=== PATIENT | male | born 2000 | race Caucasian/White ===

== ENCOUNTER 2020-06-16 06:55 | Outpatient (REF) | payer OTHER, SELFPAY | END 2020-06-16 06:56 | disposition home or self-care (01) | LOC: HO.LAB 06:55 | PROVIDERS: PCP Internal Medicine; Visit Provider Internal Medicine | DX: Z20.828 Contact with and (suspected) exposure to other viral communicable diseases (principal) | CPT/HCPCS: C9803; U0003 ==

== ENCOUNTER 2020-10-05 07:32 | Outpatient (REF) | payer OTHER, SELFPAY ==
[2020-10-05 12:29] LABS: SARS COV2 PCR INHOUSE NEGATIVE (Negative)
== END 2020-10-05 07:33 | disposition home or self-care (01) ==
LOC: HO.LAB 07:32
PROVIDERS: Visit Provider Internal Medicine
DX: Z20.822 Contact with and (suspected) exposure to COVID-19 (principal)
CPT/HCPCS: C9803; U0003

== ENCOUNTER → 2021-01-30 12:39 | Outpatient (BNVA) | payer OTHER, SELFPAY | PROVIDERS: PCP Internal Medicine; Visit Provider Physician Assistant ==

== ENCOUNTER 2021-07-06 10:05 | Outpatient (REF) | payer OTHER, SELFPAY | END 2021-07-06 10:06 | disposition home or self-care (01) | LOC: HO.LAB 10:05 | PROVIDERS: Visit Provider Internal Medicine | DX: Z13.89 Encounter for screening for other disorder (principal) ==

== ENCOUNTER 2024-12-22 10:26 | Emergency (ER) | payer BC, OTHER, SELFPAY ==
--- NOTE | ~2024-12-22 | XR_ITS ---
EXAMINATION: XR CHEST CLINICAL INFORMATION: chest pain COMPARISON: None available. TECHNIQUE: 2 views of the chest were obtained. FINDINGS: No significant abnormality is noted involving the heart, lungs, mediastinum, bony thorax or soft tissues. XR/XR chest 2V IMPRESSION: No acute disease Electronically signed by: Matt Russell MD 12/22/2024 12:56 PM EDT
--- NOTE | ~2024-12-22 | CT_ITS ---
EXAMINATION: CT ANGIOGRAM CHEST/THORACIC AORTA CLINICAL INFORMATION: Enlarged ascending thoracic aorta. COMPARISON: None available. TECHNIQUE: Multiple axial images were obtained through the chest after the administration of 70 mL of Omnipaque 350 intravenous contrast. Extensive vascular post-processing including two-dimensional and three-dimensional reformatted images were created and reviewed on an independent workstation. This CT examination was performed using dose optimization techniques as appropriate, variously including the following: *Automated exposure control *Adjustment of mA and/or kV according to patient size (this includes techniques or standardized protocols for targeted exams where dose is matched to indication/reason for exam; i.e. extremities or head) *Use of iterative reconstruction technique DLP: 399 mGy centimeter. FINDINGS: Thoracic aorta is patent. No intraluminal filling defect. No focal stenosis. Ascending thoracic aorta diameter is 20 mm. Thoracic aortic arch diameter is 19 mm. Descending thoracic aorta diameter is 17 mm. No IV contrast extravasation. The main right branches are patent without focal stenosis or intimal flap. The V1/V2 segments are patent without focal stenosis or intimal flap. Ancillary findings: No pneumomediastinum. No hemomediastinum. No hemopericardium. No pericardial effusion. No lymphadenopathy, mediastinum/perihilar. No acute airspace disease. No gross pulmonary nodules. No bronchiectasis. No honeycombing. Respiratory airways is patent. No pleural effusion. No hemothorax. Nonobstructing 2.5 mm calculus, right kidney. No acute fracture or listhesis, axial skeleton. Sternum is intact. Included clavicles and scapula are intact. No acute rib fracture. CT/CT angio chest aorta IMPRESSION: No aortic dissection or aneurysm. Fleischner guidelines were followed. Electronically signed by: Abdoul High MD 12/22/2024 02:43 PM EDT
--- NOTE | 2024-12-22 10:27 | ECG_ITS ---
Test Reason : CP Blood Pressure : */* mmHG Vent. Rate : 68 BPM Atrial Rate : 68 BPM P-R Int : 130 ms QRS Dur : 82 ms QT Int : 364 ms P-R-T Axes : 23 59 48 degrees QTcB Int : 387 ms Normal sinus rhythm Normal ECG No previous ECGs available Referred By: Generic ED Physician Electronically Signed By: Uriah Blount
--- NOTE | 2024-12-22 10:32 | ED_ITS ---
HPI - General Adult General Chief complaint: Chest Pain Stated complaint: Chest pain, Abd pain Time Seen by Provider: 12/22/24 10:31 Source: patient Mode of arrival: ambulatory Limitations: no limitations History of Present Illness ED Provider: Lisa Hemphill PA-C HPI narrative: Patient is a 24 year old assigned male at with no reported medical history presenting to the emergency department today with chest pain / palpitations / and near syncope. Patient states that over the last year he has had episodes of near syncope when exercising and has been having left sided chest pain with palpitations. Patient states that over the last few weeks his symptoms have been getting worse. Patient denies any dizziness, lightheadedness, abdominal pain, nausea, vomiting, fever, chills, blurry vision, double vision, loss of vision, difficulty breathing, shortness of breath, back pain, night sweats, pain with urination, increased urinary frequency, increased urinary urgency, blood in his urine or stool, syncope, recent trauma or falls, bowel incontinence, bladder incontinence, or any other complaints at this time. Onset (ago): year(s) (1) Location: chest Relieving factors: none Exacerbating factors: other (exercise) Associated symptoms: chest pain Treatments prior to arrival: none Related Data Allergies Allergy/AdvReac Type Severity Reaction Status Date / Time azithromycin [AZITHROMYCIN] Allergy Unknown RASH Verified 12/22/24 10:36 Review of Systems 2 Constitutional: Constitutional: Reports no additional constitutional complaints, Denies chills, Denies fever(s) and Denies night sweats Eyes: Eyes: Reports no additional eye complaints, Denies blurry vision, Denies change in vision, Denies diplopia, Denies eye discharge, Denies loss of vision and Denies eye pain ENT: Denies dizziness Cardiovascular: Cardiovascular: Reports no additional cardiovascular complaints, Reports chest pain, Denies lightheadedness, Denies Loss of Consciousness, Reports palpitations and Denies dyspnea Respiratory: Respiratory: Reports no additional respiratory complaints and Denies dyspnea Gastrointestinal: Gastrointestinal: Reports no additional gastrointestinal complaints, Denies abdominal pain, Denies melena, Denies hematochezia, Denies change in bowel habits and Denies change in stool character Genitourinary: Genitourinary: Reports no additional male genitourinary complaints, Denies hematuria, Denies oliguria, Denies difficulty urinating, Denies dysuria, Denies urinary frequency, Denies urinary hesitancy, Denies urinary incontinence and Denies urinary urgency Musculoskeletal: Musculoskeletal: Reports no additional musculoskeletal complaints, Denies numbness and Denies tingling Neurologic: Denies dizziness, Denies loss of vision, Denies numbness and Denies tingling Comments: near syncope Psychiatric: Psychiatric: Reports no additional psychiatric complaints Endocrine: Endocrine: Reports no additional endocrine complaints and Reports palpitations Hematologic/Lymphatic: Hematologic/Lymphatic: Reports no additional hematologic/lymphatic complaints Allergic/Immunologic: Allergic/Immunologic: Reports no additional allergic/immunologic complaints [facility] Past Medical History Attestation statement: The following information was validated with the patient. 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 Physical Exam ED Vital Signs: Vital Signs - 24 hr 12/22/24 10:45 12/22/24 12:00 12/22/24 14:00 Temperature 98.2 F 98.8 F Pulse Rate 65 71 66 Respiratory Rate 10 L 16 12 Blood Pressure 136/86 122/69 123/64 Pulse Oximetry 99 98 100 Oxygen Delivery Method Room Air Room Air Room Air BMI result Body Mass Index 27.2 Const General: cooperative, no acute distress, alert and awake Nutritional Appearance: well nourished Orientation/consciousness: patient oriented x3 HENMT Head: Yes normal to inspection and Yes atraumatic Ears: hearing grossly normal bilaterally and external ears normal General nose exam: Normal external nose present, no nasal discharge noted and no epistaxis Face and sinus: Yes normal facial exam, No abrasion and No laceration Mouth: Normal oral and palatal mucosa present, no drooling and no muffled voice Eyes General: appearance normal, both eyes and all related structures Periorbital: periorbital findings normal Eyelids: Yes eyelids normal Conjunctivae: conjunctivae normal Pupils: Equal, round and reactive pupils present EOM: EOMs intact bilaterally Neck Neck: Yes normal visual inspection, Yes full ROM and Yes no lymphadenopathy Resp Effort & Inspection: normal respiratory effort and able to speak in complete sentences Neuro General: patient oriented x3, moves all extremities and CN's II-XI intact bilaterally Cranial nerves: Yes Equal, round and reactive pupils present Cognition (Neuro): normal cognition Extrem General: Yes normal to inspection, Yes full ROM and Yes capillary refill normal Psych Appearance: grossly normal Mental Status: mental status grossly normal Affect: normal affect Attitude: cooperative Thought process: Normal thought process present Thought content: Normal thought content present Insight: Good insight present (Psych) Medications Administered Discontinued Medications Generic Name Dose Route Start Last Admin Trade Name Ramo PRN Reason Stop Dose Admin Iohexol 100 ml 12/22/24 14:31 12/22/24 14:31 Iohexol 350 Mg/Ml 100 Ml Infus..Btl IV 12/22/24 14:32 60 ml ONCE ONE Administration Medical Decision Making Medical Decision Making [facility] Narrative: Patient is a 24 year old assigned male at with no reported medical history presenting to the emergency department today with chest pain / palpitations / and near syncope. Patient's physical exam was unremarkable. Patient's blood work was unremarkable. Patient's EKG was unremarkable. Patient's chest x-ray showed no acute process. I spoke with Dr. Blount who recommended obtaining an echo. Echo was obtained and as he was reviewing it, Dr. Blount recommended a CTA of the aorta. CTA of the aorta obtained which was negative for any acute process. Dr. Blount recommended outpatient follow up with his office. I explained my physical exam findings as well as all test results to the patient. I answered all questions asked by the patient. I stressed the importance of the patient taking his medication as directed (either prescribed or as the over the counter packaging recommends). I stressed the importance of the patient following up with his primary care provider and assistant offset press operator. I stressed the importance of the patient returning to the emergency department immediately if his symptoms were to worsen or if he were to develop any dizziness, shortness of breath, difficulty breathing, chest pain, blurry vision, loss of vision, nausea, vomiting, abdominal pain, fever, chills, back pain, or any other complaints. Patient verbalized agreement and understanding with this treatment plan and discharge. Differential Diagnosis Differential Diagnoses: The differential diagnosis associated with the presentation includes Hypertrophic cardiomyopathy Chest pain Atypical chest pain Palpitations Anxiety Admission/Observation Consideration of admission/observation: Escalation of care including admission/observation considered Patient would have been admitted to the hospital had his work up had any findings where hospital admission was appropriate and his clinical presentation warranted hospital admission. Consult Healthcare Provider Management of the patient was discussed with: Ball[place] (Spoke with Dr. Blount the assistant offset press operator as noted in the MDM Rationale portion of this note. ) Lab Data [facility] Lab Attestation statement: I reviewed the patient's lab results. My interpretation of these results are in the MDM Rationale portion of this note. 12/22/24 10:35 12/22/24 11:03 Labs: Lab Results 12/22/24 12/22/24 12/22/24 Range/Units 10:35 11:03 11:19 WBC 4.5 L (4.8-10.8) X10*3/uL RBC 5.53 (4.60-5.80) X10*6/uL Hgb 16.1 (14.0-18.0) g/dl Hct 48.3 (42.0-52.0) % MCV 87.3 (80.0-98.0) fL MCH 29.1 (27.0-33.0) pg MCHC 33.3 (31.0-36.0) g/dl RDW 12.7 (11.0-16.0) % Plt Count 157 L (160-400) X10*3/uL MPV 11.1 (9.4-12.4) fL Immature Gran % (Auto) 0.4 (0.0-0.4) % Neut % (Auto) 42.5 L (45-73) % Lymph % (Auto) 44.8 H (20-40) % [place] % (Auto) 8.7 (2-11) % Eos % (Auto) 2.9 (0-4) % Baso % (Auto) 0.7 (0-2) % Lymph # (Auto) 2.0 (1.2-4.9) X10*3/uL [place] # (Auto) 0.4 (0.1-1.2) X10*3/uL Eos # (Auto) 0.1 (0.0-0.4) X10*3/uL Baso # (Auto) 0.0 (0.0-0.2) X10*3/uL Abs Immat Gran (auto) 0.02 (0.00-0.03) X10*3/uL Absolute Neuts (auto) 1.9 L (2.0-8.3) x10*3/uL Absolute Nucleated RBC 0.000 (0.0-0.012) X10*3/uL Nucleated RBC % (auto) 0.0 (0.0-0.2) /100WBC Sodium 141 (135-145) mmol/L Potassium 4.3 (3.3-5.1) mmol/L Chloride 109 H (96-108) mmol/L Carbon Dioxide 27 (22-29) mmol/L Anion Gap 9 L (12-20) BUN 15 (9-16) mg/dL Creatinine 1.12 (0.5-1.4) mg/dL Estim Creat Clear Calc 108.3 Estimated GFR > 60 Random Glucose 105 (60-115) mg/dL Calcium 9.4 (8.4-10.2) mg/dL Total Bilirubin 0.7 (0.0-1.0) mg/dL Direct Bilirubin 0.2 (0.0-0.5) mg/dL AST 23 (5-37) U/L ALT 34 (0-40) U/L Alkaline Phosphatase 58 (39-117) U/L Troponin I High Sens < 2.7 (<3.5-35.0) ng/L B-Natriuretic Peptide 19 (<100) pg/mL Total Protein 7.2 (6.5-8.0) g/dL Albumin 4.9 (3.5-5.0) g/dL Lipase 19 (8-78) U/L Urine Color Yellow Urine Appearance Clear Urine pH 7.5 (5.0-9.0) Ur Specific [place] 1.015 (1.005-1.025) Urine Protein Negative (Neg-Trace) mg/dL Urine Glucose (UA) Negative (Negative) mg/dL Urine Ketones Negative (Negative) mg/dL Urine Blood Negative (Negative) Urine Nitrite Negative (Negative) Ur Leukocyte Esterase Negative (Negative) Independent Interpretation I performed an independent interpretation of an: EKG, Plain X-Ray (chest) and CT Scan (CTA aorta) Interpretation: My interpretation is in agreement with the radiologist's impression of these imaging studies. L Report Number: [id number]: Total DLP = 399.00 mGy-cm EXAMINATION: CT ANGIOGRAM CHEST/THORACIC AORTA CLINICAL INFORMATION: Enlarged ascending thoracic aorta. COMPARISON: None available. TECHNIQUE: Multiple axial images were obtained through the chest after the administration of 70 mL of Omnipaque 350 intravenous contrast. Extensive vascular post-processing including two-dimensional and three- dimensional reformatted images were created and reviewed on an independent workstation. This CT examination was performed using dose optimization techniques as appropriate, variously including the following: *Automated exposure control *Adjustment of mA and/or kV according to patient size (this includes techniques or standardized protocols for targeted exams where dose is matched to indication/reason for exam; i.e. extremities or head) *Use of iterative reconstruction technique DLP: 399 mGy centimeter. FINDINGS: Thoracic aorta is patent. No intraluminal filling defect. No focal stenosis. Ascending thoracic aorta diameter is 20 mm. Thoracic aortic arch diameter is 19 mm. Descending thoracic aorta diameter is 17 mm. No IV contrast extravasation. The main right branches are patent without focal stenosis or intimal flap. The V1/V2 segments are patent without focal stenosis or intimal flap. Ancillary findings: No pneumomediastinum. No hemomediastinum. No hemopericardium. No pericardial effusion. No lymphadenopathy, mediastinum/perihilar. No acute airspace disease. No gross pulmonary nodules. No bronchiectasis. No honeycombing. Respiratory airways is patent. No pleural effusion. No hemothorax. Nonobstructing 2.5 mm calculus, right kidney. No acute fracture or listhesis, axial skeleton. Sternum is intact. Included clavicles and scapula are intact. No acute rib fracture. CT/CT angio chest aorta IMPRESSION: No aortic dissection or aneurysm. Fleischner guidelines were followed. Electronically signed by: Abdoul High MD 12/22/2024 02:43 PM EDT Dictated By: Abdoul Art MD Signed By: Electronically signed by Abdoul Sylvester MD 12/22/24 1443 EXAMINATION: XR CHEST CLINICAL INFORMATION: chest pain COMPARISON: None available. TECHNIQUE: 2 views of the chest were obtained. FINDINGS: No significant abnormality is noted involving the heart, lungs, mediastinum, bony thorax or soft tissues. XR/XR chest 2V IMPRESSION: No acute disease Electronically signed by: Matt Russell MD 12/22/2024 12:56 PM EDT RP Dictated By: Matt Russell MD Signed By: Electronically signed by Matt Russell MD 12/22/24 1256 I independently interpreted this EKG and am in agreement with the below findings: Vent. Rate: 68 BPM Atrial Rate: 68 BPM P-R Int: 130 ms QRS Dur: 82 ms QT Int: 364 ms P-R-T Axes: 23 59 48 degrees QTcB Int: 387 ms Normal sinus rhythm Normal ECG No previous ECGs available DD/ 1027 Radiology Impression Discussion of test interpretation with radiology: I have reviewed the radiologist's reading. Critical Care Time Critical Care Time Critical Care Time: Yes Total Critical Care Time: 38 Attestation: I spent 38 minutes of Critical Care Time with this patient. This does not include time spent on separately reported billable procedures. Discharge Plan Discharge Clinical Impression: Chest pain Patient Disposition: Home, Self-Care Instructions: Chest Pain (ED) Additional Instructions: Your work up today was reassuring there is no emergent issue causing your symptoms. Follow up with your primary care provider and a assistant offset press operator. Return to the emergency department immediately if your symptoms worsen or if you develop any numbness, tingling, dizziness, shortness of breath, difficulty breathing, chest pain, blurry vision, loss of vision, nausea, vomiting, abdominal pain, fever, chills, back pain, or any other complaints. Please see the information below about our Patient Portal. If you are not yet enrolled in the [facility] Patient Portal, you will receive an enrollment email invitation following your visit to any [facility] setting. You may also self-enroll in the Patient Portal by visiting our website: [email or web address] The following information is required to access the Patient Portal: - Your [facility] Medical Record Number - Your personal home email address (must match what is in your electronic medical record, Registration staff can assist with this) - Name - Date of Capabilities of the Patient Portal: - Message some providers - View upcoming appointments - Access your health summary, medical history, and visit history - View current conditions and allergies - View procedure and lab results - View your medications, including guidelines, side effects, and precautions - Complete pre-appointment questionnaires requested by your provider - Ready summary reports of your office visits and procedures To access the Patient Portal Mobile [employer], follow these directions: - Search [employer] in the [employer] Store or [employer] Store - Download the [employer] - Search for - Enter your login/password Referrals: Uriah Blount MD [Physician] - Nadeem Hayes MD [Primary Care Provider] - Stand Alone Forms: Work/School Release Print Language: Romanian
[2024-12-22 10:34] VITALS: BMI 27.2
[2024-12-22 10:45] VITALS: BP 136/86; PULSE 64; PULSE 65; RESP 10; TEMP 36.8; O2SAT 99
--- NOTE | 2024-12-22 10:45 | CA_ITS ---
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 The visually estimated ejection fraction is between 55-60%. Diastolic function is normal for age. - Normal right ventricular cavity size and systolic function. - In some views apical hypertrophy cannot be ruled out. We will arrange a repeat study with contrast. Findings Left Ventricle Normal left ventricular size, thickness, systolic function, and wall motion. The visually estimated ejection fraction is between 55-60%. Diastolic function is normal for age. Right Ventricle Normal right ventricular cavity size and systolic function. Atria Both atria are normal in size. Aortic Valve The aortic valve structure and function is likely normal. There is no aortic valve stenosis. There is no aortic valve regurgitation. Mitral Valve The mitral valve appears normal. There is no mitral valve regurgitation. There is no mitral valve stenosis. Pulmonic Valve The pulmonic valve is likely normal. Tricuspid Valve Normal tricuspid valve structure. There is no tricuspid valve regurgitation. Normal right atrial pressure. There is no evidence of pulmonary hypertension. Great Vessels All visible segments of the aorta are normal in size. The visualized portions of the pulmonary artery and branches are normal. Venous The hepatic vein is normal in size and collapses greater than 50% with inspiration. Pericardium/Pleural There is no evidence of pericardial effusion. Prior Study Comparison No prior study available for comparison. Measurements 2D Linear Measurements IVSd: 1.00 0.6-0.9/0.6-1.0 cm LVIDd: 4.83 3.9-5.3/4.2-5.9 cm LVIDd Index: 2.31 2.4-3.2/2.2-3.1 cm/m2 LVIDs: 3.11 2.0-3.6 cm LVPWd: 1.01 0.7-1.1 cm Ao Root: 2.50 2.1-3.5 cm LA Diam: 3.30 2.7-3.8/3.0-4.0 cm LAIDs Index: 1.58 1.5-2.3 cm/m2 LV Mass: 215.19 67-162/88-224 g LV Mass Index: 102.96 43-95/49-115 g/m2 LVOT Diam: 2.00 3.0+(-)1.3 cm Mitral Valve MV Pk E: 1.01 MV PK A: 0.73 MV Decel Time: 150.00 E/A: 1.40 E'Lateral: 15.40 E'Medial: 12.10 E/E' Med: 8.30 E/E' Lat: 6.60 PHT: 44.00 MVA PHT: 5.00 Decel Barron: 6.75 Aortic Valve AoV Pk Garrett: 1.49 AoV Mn Garrett: 0.92 AoV VTI: 0.32 AoV Pk Grad: 9.00 Aov Mn Grad: 4.00 CELESTINO Cont.VTI: 2.24 LVOT LVOT Pk Garrett: 1.09 LVOT Mn Garrett: 0.68 LVOT VTI: 0.23 LVOT Pk Grad: 5.00 LVOT Mn Grad: 2.00 LVOT Diam: 2.00 LVOT Area: 3.14 Diastolic Function MV Pk E: 1.01 MV Pk A: 0.73 E/A: 1.40 E'Medial: 12.10 E/E' Med: 8.30 E' Laterial: 15.40 E/E' Lat: 6.60 Right Ventricle TAPSE (mm): 32.00 TVS' Garrett: 14.00 Tricuspid Valve TR Pk Garrett: 2.10 TR Pk Grad: 18.00 RA Press: 3.00 RVSP: 21.00 Great Vessels Aorta Ao Root-2D: 2.50 2.0-3.7 cm Ao Asc: 2.40 2.1-3.4 cm Pulmonary Valve PV Pk Garrett: 1.07 Peak PV Grad: 5.00 Updated in Other Vendor System with Status of Final Uriah Blount MD electronically signed on 12/23/2024 4:30:56 PM with status of Final
[2024-12-22 10:58] LABS: MANUAL DIFF FLAG NO
[2024-12-22 11:00] LABS: Hematocrit 48.3 % (42.0-52.0); Hemoglobin 16.1 g/dl (14.0-18.0); Red Blood Count 5.53 X10*6/uL (4.60-5.80); White Blood Count 4.5 X10*3/uL (4.8-10.8)
[2024-12-22 11:01] LABS: Basophils Percent Auto 0.7 % (0-2); Eosinophils Absolute Auto 0.1 X10*3/uL (0.0-0.4); Eosinophils Percent Auto 2.9 % (0-4); Imm Gran Abs Auto 0.02 X10*3/uL (0.00-0.03); Imm Gran Pct Auto 0.4 % (0.0-0.4); Lymphocytes Percent Auto 44.8 % (20-40); Mean Corpuscular HGB Conc 33.3 g/dl (31.0-36.0); Mean Corpuscular Hemoglobin 29.1 pg (27.0-33.0); Mean Corpuscular Volume 87.3 fL (80.0-98.0); Mean Platelet Volume 11.1 fL (9.4-12.4); Monocytes Absolute Auto 0.4 X10*3/uL (0.1-1.2); Monocytes Percent Auto 8.7 % (2-11); Neutrophils Absolute Auto 1.9 x10*3/uL (2.0-8.3); Neutrophils Percent Auto 42.5 % (45-73); Platelet Count 157 X10*3/uL (160-400); Red Cell Distribution Width 12.7 % (11.0-16.0)
--- NOTE | 2024-12-22 11:02 | PC.NURSE ---
Patient presents with c/o intermittent dizziness with exertion, vague chest.epigastric pain with palpitations. Pattient alert and oriented. surveillance system monitor applied and NSR noted. Chest pain free at this time. Lungs clear bilat. Respirations even and non-labored. Abdomen flat, soft, non-tender with positive bowel sounds. No LE edema noted
[2024-12-22 11:23] LABS: Alanine Aminotransferase 34 U/L (0-40); Albumin Level 4.9 g/dL (3.5-5.0); Alkaline Phosphatase 58 U/L (39-117); Anion Gap 9 (12-20); Aspartate Amino Transferase 23 U/L (5-37); Bilirubin Direct 0.2 mg/dL (0.0-0.5); Bilirubin Total 0.7 mg/dL (0.0-1.0); Blood Urea Nitrogen 15 mg/dL (9-16); Calcium 9.4 mg/dL (8.4-10.2); Carbon Dioxide 27 mmol/L (22-29); Chloride 109 mmol/L (96-108); Creatinine Clr Calc Pharmacy 108.3; Estimated Glomerular Filt Rate > 60; Glucose Random 105 mg/dL (60-115); Lipase 19 U/L (8-78); Potassium 4.3 mmol/L (3.3-5.1); Sodium 141 mmol/L (135-145); Total Protein 7.2 g/dL (6.5-8.0)
[2024-12-22 11:24] LABS: Troponin-I High Sensitivity < 2.7 ng/L (<3.5-35.0)
[2024-12-22 11:27] LABS: B Type Natriuretic Peptide 19 pg/mL (<100)
[2024-12-22 11:29] LABS: Appearance Urine Clear; Color Urine Yellow; Glucose Urine UA Negative (Negative); Leukocyte Esterase Urine Negative (Negative); Nitrite Urine Negative (Negative); PH 7.5 (5.0-9.0); Specific Gravity - Urine 1.015 (1.005-1.025); Urine Blood Negative (Negative); Urine Ketones Negative (Negative); Urine Protein Negative (Neg-Trace)
[2024-12-22 12:00] VITALS: BP 122/69; PULSE 71; RESP 16; TEMP 37.1; O2SAT 98
--- NOTE | 2024-12-22 13:10 | P.CONCA_ITS ---
History of Present Illness History of Present Illness Date of Service: 12/22/24 Requesting physician: Lisa Hemphill Chief complaint: Chest pain, palpitations Narrative: 24-year-old gentleman with off and on palpitations. He has been experiencing episodes of palpitations and tachycardia especially when he is under stress. 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 He is saying that his work is very demanding and he wakes up at 04:30 and returns from work around 05:00. He has minimal breaks at work and it is quite demanding to be at work. He is saying that he feels sudden palpitations but these never happen when he is exercising. He has been physically active and does weight training without any symptoms. Since yesterday she has been experiencing a dull ache in his chest. This is on the left-sided chest and gets worse with certain movements. Doing getting a chest x-ray he was asked to raise his arms which worsened the pain. EKGs showing no dynamic changes. Labs normal. 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 NECK: no carotid bruit, no jugular venous distention. SKIN: Sweaty palms. HEART: no murmurs, regular rate and rhythm. LUNGS: clear to auscultation bilaterally. ABDOMEN: soft, nontender. EXTREMITIES: no edema. PERIPHERAL PULSES: equal. NEUROLOGIC: No gross deficits, AAO X 3 Objective Labs and Meds 12/22/24 10:35 12/22/24 11:03 Lab results: Laboratory Results - last 24 hr 12/22/24 12/22/24 12/22/24 10:35 11:03 11:19 WBC 4.5 L RBC 5.53 Hgb 16.1 Hct 48.3 MCV 87.3 MCH 29.1 MCHC 33.3 RDW 12.7 Plt Count 157 L MPV 11.1 Immature Gran % (Auto) 0.4 Neut % (Auto) 42.5 L Lymph % (Auto) 44.8 H [place] % (Auto) 8.7 Eos % (Auto) 2.9 Baso % (Auto) 0.7 Lymph # (Auto) 2.0 [place] # (Auto) 0.4 Eos # (Auto) 0.1 Baso # (Auto) 0.0 Abs Immat Gran (auto) 0.02 Absolute Neuts (auto) 1.9 L Absolute Nucleated RBC 0.000 Nucleated RBC % (auto) 0.0 Sodium 141 Potassium 4.3 Chloride 109 H Carbon Dioxide 27 Anion Gap 9 L BUN 15 Creatinine 1.12 Estim Creat Clear Calc 108.3 Estimated GFR > 60 Random Glucose 105 Calcium 9.4 Total Bilirubin 0.7 Direct Bilirubin 0.2 AST 23 ALT 34 Alkaline Phosphatase 58 Troponin I High Sens < 2.7 B-Natriuretic Peptide 19 Total Protein 7.2 Albumin 4.9 Lipase 19 Urine Color Yellow Urine Appearance Clear Urine pH 7.5 Ur Specific [place] 1.015 Urine Protein Negative Urine Glucose (UA) Negative Urine Ketones Negative Urine Blood Negative Urine Nitrite Negative Ur Leukocyte Esterase Negative Imaging Radiologist's impression: Impressions Chest X-Ray 12/22/24 11:41 IMPRESSION: No acute disease Electronically signed by: Matt Russell MD 12/22/2024 12:56 PM EDT Assessment and Plan (1) Chest pain: Status: Acute (2) Palpitations: Status: Acute Plan [age] year gentleman he is here for chest pain and palpitations. He has been experiencing off and on palpitations for long time. He gets them when he is under stress and has anxiety. EKGs normal currently. He is also experiencing a dull ache in the left side of chest. This is clearly musculoskeletal in origin. He had a CT chest to rule out dissection because echocardiography had mild artifact in the ascending aorta. He can be discharged home. He will arrange Holter monitor. Thank you for allowing me to participate in the care of your patient. Please feel free to contact me if you have any questions. Procedures Date of Service Date of Service: 12/22/24
[2024-12-22 14:00] VITALS: BP 123/64; PULSE 66; RESP 12; O2SAT 100
[2024-12-22] MEDS: iohexoL 350 MG/ML 100 ML INFUS..BTL IV (14:31)
[2024-12-22 15:19] VITALS: BP 119/48; PULSE 67; RESP 16; TEMP 36.7; O2SAT 100
== END 2024-12-22 15:20 | disposition home or self-care (01) ==
PROVIDERS: Physician Assistant Medical; Emergency Provider Emergency Medicine; PCP Internal Medicine
DX: R07.9 Chest pain, unspecified (principal); R00.2 Palpitations
CPT/HCPCS: 36415; 71046; 71275; 80048; 80076; 81003; 83690; 83880; 84484; 85025; 93005; 93306; 99284; 99285; Q9957; Q9967

== ENCOUNTER → 2024-12-22 11:01 | Outpatient (BNV) | payer BC, OTHER, SELFPAY | PROVIDERS: Emergency Provider Emergency Medicine; PCP Internal Medicine; Visit Provider Internal Medicine Cardiovascular Disease | DX: R07.9 Chest pain, unspecified (principal); R00.2 Palpitations | CPT/HCPCS: 99284 ==

== ENCOUNTER → 2024-12-22 12:28 | Outpatient (BNV) | payer BC, OTHER, SELFPAY | PROVIDERS: PCP Internal Medicine; Visit Provider Radiology Diagnostic Radiology | DX: I77.810 Thoracic aortic ectasia (principal); R07.9 Chest pain, unspecified | CPT/HCPCS: 71046; 71275 ==

== ENCOUNTER → 2025-02-01 07:53 | Outpatient (REF) | payer BC, OTHER, SELFPAY ==
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
--- NOTE | 2025-02-01 07:57 | CA_ITS ---
Transthoracic Echocardiogram Patient (Last, First, Middle): Stanislaw Lagos T Gender: Male Date of : 2000 Age: 24 Procedure Date: 02/01/2025 Procedure Type: Transthoracic Echocardiogram Location: OP Height: 180. cm Weight: 86.18 kg BSA: 2.06 m2 Heart Rate: 63 bpm BP: 126 / 80 mmHg Legal Technician: SELIN Quintero MD: Uriah Blount MD Assessment Nurse: Uriah Blount MD Symptoms: R00.2 - Palpitations Study Quality: Adequate w/Contrast, Limited per order ECG Rhythm: Sinus Conclusions: - Normal left ventricular size, thickness, and systolic function. The visually estimated ejection fraction is between 55-60%. Diastolic function is normal for age. - No evidence of apical hypertrophy. Findings Procedure Information Contrast agent, definity, is being given per protocol without apparent complications. Left Ventricle Normal left ventricular size, thickness, and systolic function. The visually estimated ejection fraction is between 55-60%. Diastolic function is normal for age. Right Ventricle Normal right ventricular cavity size and systolic function. Aortic Valve Normal aortic valve structure and function. Venous The inferior vena cava is normal in size and collapses greater than 50% with inspiration. Pericardium/Pleural There is no evidence of pericardial effusion. Prior Study Comparison No significant change compared to prior study dated: 12/22/2024. Measurements 2D Linear Measurements IVSd: 0.74 0.6-0.9/0.6-1.0 cm LVIDd: 5.12 3.9-5.3/4.2-5.9 cm LVIDd Index: 2.49 2.4-3.2/2.2-3.1 cm/m2 LVIDs: 3.74 2.0-3.6 cm LVPWd: 0.76 0.7-1.1 cm LV Mass: 162.27 67-162/88-224 g LV Mass Index: 78.77 43-95/49-115 g/m2 LVOT Diam: 2.10 3.0+(-)1.3 cm 2D Systolic Function EF 4C: 49.00 >55% EF 2C: 46.50 >55% EF BiP: 47.70 >55% Mitral Valve MV Pk E: 1.05 MV PK A: 0.39 MV Decel Time: 135.00 E/A: 2.70 E'Lateral: 15.60 E'Medial: 13.60 E/E' Med: 7.70 E/E' Lat: 6.70 PHT: 40.00 MVA PHT: 5.50 Decel [place]: 7.80 LVOT LVOT Pk Garrett: 1.17 LVOT Mn Garrett: 0.72 LVOT VTI: 0.24 LVOT Pk Grad: 5.00 LVOT Mn Grad: 3.00 LVOT Diam: 2.10 LVOT Area: 3.46 Diastolic Function MV Pk E: 1.05 MV Pk A: 0.39 E/A: 2.70 E'Medial: 13.60 E/E' Med: 7.70 E' Laterial: 15.60 E/E' Lat: 6.70 Updated in Other Vendor System with Status of Final Uriah Blount MD electronically signed on 02/01/2025 2:10:57 PM with status of Final
--- NOTE | 2025-02-01 07:57 | HM_ITS ---
Conclusion: 1. Patient was monitored for total period of 6 days and 8 hours 2. Baseline was normal sinus rhythm with average heart rate of 72 beats per minute 3. No significant pauses or tachyarrhythmias noted 4. Rare ectopy noted 5. Patient marked the counter 1 time correlating with sinus rhythm MTDD
== END ==
LOC: HO.CARD 07:53
PROVIDERS: Visit Provider Internal Medicine Cardiovascular Disease
DX: R00.2 Palpitations (principal)
CPT/HCPCS: 93246; 93308; Q9957

== ENCOUNTER → 2025-02-01 07:57 | Outpatient (BNV) | payer BC, OTHER, SELFPAY | PROVIDERS: Visit Provider Internal Medicine Cardiovascular Disease | DX: R00.2 Palpitations (principal) | CPT/HCPCS: 93308 ==